=== PATIENT | male | born 1970 | race Hispanic/Latino ===

== ENCOUNTER 2016-11-14 03:25 | Inpatient (IN) | payer OTHER ==
[2016-11-14 05:23] LABS: Basophils % (Auto) 0.3 % (0.0-1.8); Eosinophils % (Auto) 1.6 % (0.0-4.3); Hematocrit 43.9 % (35.5-45.6); Mean Corpuscular HGB Conc 34 % (32-34); Mean Corpuscular Hemoglobin 27 pg (28-32); Mean Corpuscular Volume 80 fl (84-94); Platelet Count 240 K/mm3 (140-440); Red Blood Count 5.52 M/mm3 (3.65-5.03); Red Cell Distribution Width 16.4 % (13.2-15.2); White Blood Count 13.4 K/mm3 (4.5-11.0)
[2016-11-14 05:40] LABS: Anion Gap 21 mmol/L; BUN/Creatinine Ratio 7.27; Blood Urea Nitrogen 8 mg/dL (9-20); Calcium 8.9 mg/dL (8.4-10.2); Carbon Dioxide 19 mmol/L (22-30); Chloride 103.6 mmol/L (98-107); Glucose 72 mg/dL (75-100); Sodium 140 mmol/L (137-145)
--- NOTE | 2016-11-14 09:54 | XRay Report ---
ROUTINE CHEST, TWO VIEWS: HISTORY: Shortness of breath. The trachea, heart, mediastinal contour, lung acosta and bony thorax are unremarkable. Thoracic neurostimulator is unchanged since 02/29/16. The distal tip terminates at approximately T7-8 level. IMPRESSION: Unremarkable chest x-ray.
[2016-11-14] MEDS ORDERED: ZOFRAN IV ONE (14:37)
[2016-11-14] MEDS ORDERED: MORPHINE IV ONE (14:37)
[2016-11-14] MEDS ORDERED: NITRO-BID 2% TP ONE (14:37)
--- NOTE | 2016-11-14 15:06 | Emergency Department Report ---
ED Chest Pain HPI - General Chief Complaint: Chest Pain Stated Complaint: CHEST PAIN Time Seen by Provider: 11/14/16 14:26 Source: patient, EMS, old records reviewed Mode of arrival: Stretcher Limitations: No Limitations - History of Present Illness Initial Comments: 46-year-old male with a past medical history asthma, CHF, COPD, hypertension, CAD with LAD stent placed in 2014, hiatal hernia, and PUD presents to the hospital complaining of chest pain since yesterday. Pain is left-sided chest described as a "truck sitting on his chest:. Pain is constant without aggravating constant somewhat worse with breathing and radiates all the way to the posterior lateral right chest. Positive associated shortness of breath, nausea, vomiting 1, and diaphoresis. Patient arrived via EMS and received aspirin and nitroglycerin in route. Patient has been compliant with his medications including his aspirin 81 mg daily. Previous medical record review. Patient had a cardiac cath here for [place] [id number] showed a patent mid LAD stent and mild nonobstructive irregularities EF of 60%. Patient also had a negative exercise stress test here February 2016. 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 Severity scale (0 -10): 8 - Related Data Home Medications Medication Instructions Recorded Confirmed Last Taken Atenolol [Tenormin] 50 mg PO DAILY 02/29/16 02/29/16 Unknown Previous Rx's Medication Instructions Recorded Last Taken Type AtorvaSTATin [Lipitor] 40 mg PO QHS #30 tablet 11/11/15 Unknown Rx Gabapentin Enacarbil [Horizant] 600 mg PO TID PRN #90 tablet.er 11/11/15 Unknown Rx Pantoprazole [Protonix TAB] 40 mg PO QDAY #30 tablet 11/11/15 Unknown Rx QUEtiapine [SEROquel] 400 mg PO QHS #30 tablet 11/11/15 Unknown Rx Aspirin EC [Aspirin Enteric Coated 81 mg PO QDAY #30 tablet.dr 03/02/16 Unknown Rx TAB] Nicotine [Habitrol] 14 mg TD QDAY #30 patch 03/02/16 Unknown Rx Prasugrel [Effient] 10 mg PO QDAY #30 tablet 03/02/16 Unknown Rx oxyCODONE /ACETAMINOPHEN [Percocet 1 tab PO BID PRN #10 tablet 03/02/16 Unknown Rx 5/325] Allergies Allergy/AdvReac Type Severity Reaction Status Date / Time Penicillins Allergy Anaphylaxis Verified 06/01/15 13:45 Heart Score - HEART Score History: Slightly suspicious EKG: Normal Age: 45-65 Risk factors: > 3 risk factors or hx of atherosclerotic disease Troponin: < normal limit HEART Score: 3 ED Review of Systems ROS: Stated complaint: CHEST PAIN Other details as noted in HPI Comment: All other systems reviewed and negative Other: Constitutional: No fevers chills Eyes: No eye pain visual changes ENT: No ear pain or throat pain Neck: Denies pain Respiratory: Denies cough wheezing Cardiovascular: Denies palpitations, syncope GI: Denies abdominal pain : Chronic intermittent hematuria Musculoskeletal: Denies back pain Skin: Denies rash, lesions, erythema Neurologic: Denies headache, numbness, weakness ED Past Medical Hx - Past Medical History Previous Medical History?: Yes Hx Hypertension: Yes Hx Congestive Heart Failure: Yes Hx Diabetes: No Hx Arthritis: Yes Hx Kidney Stones: Yes Hx Asthma: Yes Hx COPD: Yes Additional medical history: HIATAL HERNIA. ULCERS. CAD - Surgical History Past Surgical History?: Yes Hx Coronary Stent: Yes Additional Surgical History: BACK SURGERY X 2. INGUINAL HERNIA REPAIR. TONSILLECTOMY - Social History Smoking Status: Current Every Day Smoker Substance Use Type: None - Medications Home Medications: Home Medications Medication Instructions Recorded Confirmed Last Taken Type AtorvaSTATin [Lipitor] 40 mg PO QHS #30 tablet 11/11/15 02/29/16 Unknown Rx Gabapentin Enacarbil [Horizant] 600 mg PO TID PRN #90 tablet.er 11/11/15 Unknown Rx Pantoprazole [Protonix TAB] 40 mg PO QDAY #30 tablet 11/11/15 02/29/16 Unknown Rx QUEtiapine [SEROquel] 400 mg PO QHS #30 tablet 11/11/15 02/29/16 Unknown Rx Atenolol [Tenormin] 50 mg PO DAILY 02/29/16 02/29/16 Unknown History Aspirin EC [Aspirin Enteric Coated 81 mg PO QDAY #30 tablet. 03/02/16 Unknown Rx TAB] Nicotine [Habitrol] 14 mg TD QDAY #30 patch 03/02/16 Unknown Rx Prasugrel [Effient] 10 mg PO QDAY #30 tablet 03/02/16 Unknown Rx oxyCODONE /ACETAMINOPHEN [Percocet 1 tab PO BID PRN #10 tablet 03/02/16 Unknown Rx 5/325] ED Physical Exam - General Limitations: No Limitations - Other Other exam information: General: No limitations, patient is alert in no acute distress Head exam: Atraumatic, normocephalic Eyes exam: Normal appearance, pupils equal reactive to light, extraocular movements intact ENT: Moist mucous membrane, normal oropharynx Neck exam: Normal inspection, full range of motion, no meningismus nontender Respiratory exam: Clear to auscultation bilateral, no wheezes, rales, crackles Cardiovascular: Normal rate and rhythm, normal heart sounds. Positive sternal chest tenderness Abdomen: Soft, nondistended, and nontender, with normal bowel sounds, no rebound, or guarding Extremity: Full range of motion normal inspection no deformity, no calf tenderness or edema Back: Normal Inspection, full range of motion, no tenderness Neurologic: Alert, oriented x3, cranial nerves intact, no motor or sensory deficit Psychiatric: normal affect, normal mood Skin: Warm, dry, intact ED Course Vital Signs 11/14/16 11/14/16 11/14/16 04:38 14:28 14:29 Temperature 97.8 F 98.0 F Pulse Rate 81 82 Respiratory 18 14 14 Rate Blood Pressure 187/119 Blood Pressure 150/92 [Left] O2 Sat by Pulse 98 100 100 Oximetry - Reevaluation(s) Reevaluation #1: 11/14/16 15:04 Morphine, nitroglycerin, and Zofran ordered in the ED. - Consultations Consultation #1: 11/14/16 15:[address] Chacko (ming cards) recommends exercise stress test tomorrow DEA score - Dea Score Age > 65: (0) No Aspirin use within the Past 7 Days: (1) Yes 3 or more CAD Risk Factors: (1) Yes 2 or more Angina events in past 24 hrs: (1) Yes Known CAD with more than 50% Stenosis: (1) Yes Elevated Cardiac Markers: (0) No ST Deviation Greater than 0.5mm: (0) No DEA Score: 4 ED Medical Decision Making - Lab Data Result diagrams: 11/14/16 05:07 11/14/16 05:07 Lab Results 11/14/16 11/14/16 11/14/16 Range/Units 05:07 05:07 09:26 WBC 13.4 H (4.5-11.0) K/mm3 RBC 5.52 H (3.65-5.03) M/mm3 Hgb 15.0 (11.8-15.2) gm/dl Hct 43.9 (35.5-45.6) % MCV 80 L (84-94) fl MCH 27 L (28-32) pg MCHC 34 (32-34) % RDW 16.4 H (13.2-15.2) % Plt Count 240 (140-440) K/mm3 Lymph % (Auto) 15.0 (13.4-35.0) % [place] % (Auto) 11.9 H (0.0-7.3) % Eos % (Auto) 1.6 (0.0-4.3) % Baso % (Auto) 0.3 (0.0-1.8) % Lymph # 2.0 (1.2-5.4) K/mm3 [place] # 1.6 H (0.0-0.8) K/mm3 Eos # 0.2 (0.0-0.4) K/mm3 Baso # 0.0 (0.0-0.1) K/mm3 Seg Neutrophils % 71.2 H (40.0-70.0) % Seg Neutrophils # 9.6 H (1.8-7.7) K/mm3 Sodium 140 (137-145) mmol/L Potassium 4.0 (3.6-5.0) mmol/L Chloride 103.6 (98-107) mmol/L Carbon Dioxide 19 L (22-30) mmol/L Anion Gap 21 mmol/L BUN 8 L (9-20) mg/dL Creatinine 1.1 (0.8-1.5) mg/dL Estimated GFR > 60 ml/min BUN/Creatinine Ratio 7.27 % Glucose 72 L (75-100) mg/dL Calcium 8.9 (8.4-10.2) mg/dL Troponin T < 0.010 < 0.010 (0.00-0.029) ng/mL - EKG Data -: EKG Interpreted by Me (sinus rhythm rate 74 left axis deviation) - EKG Data When compared to previous EKG there are: no significant change (03/01/2016) - Radiology Data Radiology results: report reviewed (chest x-ray: Unremarkable) - Medical Decision Making Plan to admit patient to the hospital for cardiac evaluation. Enzymes negative 2 with unremarkable EKG. I suspect that pain might be musculoskeletal however given her cardiac history will be admitted for further evaluation. Case discussed with molder hand. Patient complains of chronic intermittent hematuria with unknown cause. UA ordered and pending at disposition - Differential Diagnosis CA, unstable angina, PE, costochondritis Critical Care Time: No Critical care attestation.: If time is entered above; I have spent that time in minutes in the direct care of this critically ill patient, excluding procedure time. ED Disposition Clinical Impression: Hx of heart artery stent, Chest pain, Vomiting Disposition: OP ADMIT IP TO THIS HOSP Is pt being admited?: Yes Condition: Stable Time of Disposition: 15:10 (Dr Wheat/hosp)
[2016-11-14] MEDS ORDERED: HABITROL TD ONE (16:38)
[2016-11-14] MEDS ORDERED: GABAPENTIN ENACARBIL 600 MG PO PRN (16:38)
--- NOTE | 2016-11-14 16:40 | History and Physical Report ---
History of Present Illness Date of examination: 11/14/16 Chief complaint: chest pain History of present illness: 46-year-old man with past medical history significant for CAD status post stent placement, hypertension, major depression disorder, chronic back pain presented to the emergency department complaining of left-sided chest pain that started 2 days ago. Pain is 9 out of 10, pressure-like, with radiation to the left arm and left jaw, patient is also complaining associated shortness of breath, diaphoresis. Patient denied palpitation, fever, swelling of the leg. REVIEW OF SYSTEMS: GENERAL: no weight change, no fatigue, no fever HEAD: no head ache EYES: no blurry vision, no acute visual loss EARS: no hearing loss, no discharge, no earache NOSE: no stuffiness, no sneezing, no discharge MOUTH, THROAT AND NECK: no bleeding gums, no sore throat, no swollen neck CARDIAC: no palpitations, + dyspnea on exertion, no orthopnea, no PND, no edema , + chest pain RESPIRATORY: + shortness of breath, no wheeze, no cough, no sputum, no hemoptysis, no asthma GI: no decreased appetite, + nausea, + vomiting, no dysphagia, no diarrhea, no constipation, no abdominal pain URINARY: no change in frequency, no urgency, no polyuria, no hematuria, no incontinence MUSCULOSKELETAL: no muscle weakness, no pain, no joint stiffness NEUROLOGIC: no loss of sensation/numbness, no tingling, no tremors, no weakness/ paralysis HEMATOLOGIC: no anemia, no easy bruising SKIN: no rashes ENDOCRINE: no heat/cold intolerance, no polyuria, no polydipsia, no thyroid problems, no diabetes PSYCHIATRIC: no anxiety, +depression, no suicidal ideations Past History Past Medical History: CAD, hypertension, other (major depression disorder, back pain) Past Surgical History: hernia repair, Other (back surgery) Social history: smoking (1/2 PPD), full code. denies: alcohol abuse, prescription drug abuse, IV drug use Family history: no significant family history Medications and Allergies Allergies Allergy/AdvReac Type Severity Reaction Status Date / Time Penicillins Allergy Anaphylaxis Verified 06/01/15 13:45 Home Medications Medication Instructions Recorded Confirmed Last Taken Type Gabapentin Enacarbil [Horizant] 600 mg PO TID PRN #90 tablet.er 11/11/15 Unknown Rx QUEtiapine [SEROquel] 400 mg PO QHS #30 tablet 11/11/15 11/14/16 Unknown Rx Atenolol [Tenormin] 50 mg PO DAILY 02/29/16 11/14/16 Unknown History Aspirin EC [Aspirin Enteric Coated 81 mg PO QDAY #30 tablet. 03/02/16 Unknown Rx TAB] oxyCODONE /ACETAMINOPHEN [Percocet 1 tab PO BID PRN #10 tablet 03/02/16 Unknown Rx 5/325] Zolpidem [Ambien] 10 mg PO QHS 11/14/16 11/14/16 Unknown History Active Meds: Active Medications Aspirin (Baby Aspirin) 81 mg PO QDAY ARSLAN Atorvastatin Calcium (Lipitor) 40 mg PO QHS ARSLAN Heparin Sodium (Porcine) (Heparin) 5,000 unit SUB-Q Q8HR ARSLAN Nicotine (Habitrol) 14 mg TD ONCE ONE Stop: 11/14/16 16:39 Exam - Physical Exam Narrative exam: Not in cardiopulmonary distress. The patient is obese. Vital signs as documented. Head exam is unremarkable. No scleral icterus . Neck is without jugular venous distension, thyromegaly, or carotid bruits. Lungs are clear to auscultation. Cardiac exam reveals regular rate and Rhythm. First and second heart sounds normal. No murmurs, rubs or gallops. Abdominal exam reveals normal bowel sounds, no masses, no organomegaly and no aortic enlargement. Extremities are nonedematous and both femoral and pedal pulses are normal. 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 No focal weakness. - Constitutional Vitals: Temp Pulse Resp BP Pulse Ox 98.0 F 82 14 150/92 100 11/14/16 14:28 11/14/16 14:28 11/14/16 14:29 11/14/16 14:28 11/14/16 14:29 Results - Labs CBC & Chem 7: 11/14/16 05:07 11/14/16 05:07 Labs: Laboratory Last Values WBC 13.4 K/mm3 (4.5-11.0) H 11/14/16 05:07 RBC 5.52 M/mm3 (3.65-5.03) H 11/14/16 05:07 Hgb 15.0 gm/dl (11.8-15.2) 11/14/16 05:07 Hct 43.9 % (35.5-45.6) 11/14/16 05:07 MCV 80 fl (84-94) L 11/14/16 05:07 MCH 27 pg (28-32) L 11/14/16 05:07 MCHC 34 % (32-34) 11/14/16 05:07 RDW 16.4 % (13.2-15.2) H 11/14/16 05:07 Plt Count 240 K/mm3 (140-440) 11/14/16 05:07 Lymph % (Auto) 15.0 % (13.4-35.0) 11/14/16 05:07 [place] % (Auto) 11.9 % (0.0-7.3) H 11/14/16 05:07 Eos % (Auto) 1.6 % (0.0-4.3) 11/14/16 05:07 Baso % (Auto) 0.3 % (0.0-1.8) 11/14/16 05:07 Lymph # 2.0 K/mm3 (1.2-5.4) 11/14/16 05:07 [place] # 1.6 K/mm3 (0.0-0.8) H 11/14/16 05:07 Eos # 0.2 K/mm3 (0.0-0.4) 11/14/16 05:07 Baso # 0.0 K/mm3 (0.0-0.1) 11/14/16 05:07 Seg Neutrophils % 71.2 % (40.0-70.0) H 11/14/16 05:07 Seg Neutrophils # 9.6 K/mm3 (1.8-7.7) H 11/14/16 05:07 Sodium 140 mmol/L (137-145) 11/14/16 05:07 Potassium 4.0 mmol/L (3.6-5.0) 11/14/16 05:07 Chloride 103.6 mmol/L (98-107) 11/14/16 05:07 Carbon Dioxide 19 mmol/L (22-30) L 11/14/16 05:07 Anion Gap 21 mmol/L 11/14/16 05:07 BUN 8 mg/dL (9-20) L 11/14/16 05:07 Creatinine 1.1 mg/dL (0.8-1.5) 11/14/16 05:07 Estimated GFR > 60 ml/min 11/14/16 05:07 BUN/Creatinine Ratio 7.27 % 11/14/16 05:07 Glucose 72 mg/dL (75-100) L 11/14/16 05:07 Calcium 8.9 mg/dL (8.4-10.2) 11/14/16 05:07 Troponin T < 0.010 ng/mL (0.00-0.029) 11/14/16 14:40 Assessment and Plan Assessment and plan: Chest pain CAD status post stent placement Hypertension Chronic back pain Major depression disorder -Positive cardiac enzymes are negative, EKG no change from baseline -Cardiology consulted, per ER doctor cardiology recommended exercise stress test - We will resume appropriate home medications DVT prophylaxis - Lovenox Disposition - Admit to telemetry floor Advance Directives: Yes VTE prophylaxis?: Chemical Plan of care discussed with patient/family: Yes
[2016-11-14 16:57] LABS: INR 1.04 (0.87-1.13)
[2016-11-14 20:37] LABS: Bilirubin,Urine NEG (Negative); Blood,Urine LG (Negative); Ketones,Urine NEG (Negative); Leukocyte Esterase,Urine NEG (Negative); Mucus,Urine FEW /HPF; Nitrite,Urine NEG (Negative); Protein,Urine <15 mg/dL mg/dL (Negative)
[2016-11-14] MEDS ORDERED: NEURONTIN PO PRN (22:00)
[2016-11-14] MEDS ORDERED: NACL ONE (23:07)
[2016-11-14] MEDS: AMBIEN PO SCH (23:10)
[2016-11-14] MEDS: HEPARIN SUB-Q SCH (23:15)
--- NOTE | 2016-11-14 23:54 | Cat Scan Report ---
FINAL REPORT PROCEDURE: CT ANGIO CHEST TECHNIQUE: Computerized axial tomographic angiography of the chest and pulmonary arteries was performed after the IV injection of iodinated nonionic contrast. The image data was postprocessed using maximum intensity projection (MIP) and 2-dimensional multiplanar reformatted (MPR) techniques. The examination is specifically tailored to the evaluation of the pulmonary arteries per clinical request. HISTORY: Short of breath 786.09, chest pain 786.50, CHEST PAIN COMPARISON: 11/11/2015 FINDINGS: Heart and pericardium: Normal. Thoracic aorta: Normal. Pulmonary vasculature: Normal. No pulmonary emboli. Lymph nodes: No enlarged thoracic lymph nodes. Lungs: Normal. Pleural space: No effusion, thickening, or pneumothorax. Musculoskeletal structures: No significant abnormality. Upper abdominal structures: No significant abnormality. IMPRESSION: There is no pulmonary embolism. There is no thoracic aortic aneurysm or dissection.. The lungs are clear.
[2016-11-15] MEDS: PERCOCET 5/325 PO PRN ×2 (00:06→23:10)
[2016-11-15] MEDS: HEPARIN SUB-Q SCH ×3 (06:52→22:57)
[2016-11-15 07:05] LABS: Basophils % (Auto) 0.6 % (0.0-1.8); Eosinophils % (Auto) 3.1 % (0.0-4.3); Hematocrit 40.5 % (35.5-45.6); Hemoglobin 13.4 gm/dl (11.8-15.2); Mean Corpuscular HGB Conc 33 % (32-34); Mean Corpuscular Hemoglobin 27 pg (28-32); Mean Corpuscular Volume 82 fl (84-94); Platelet Count 223 K/mm3 (140-440); Red Blood Count 4.95 M/mm3 (3.65-5.03); Red Cell Distribution Width 16.5 % (13.2-15.2); White Blood Count 9.7 K/mm3 (4.5-11.0)
[2016-11-15 07:15] LABS: BUN/Creatinine Ratio 10.66; Calcium 8.4 mg/dL (8.4-10.2); Chloride 101.8 mmol/L (98-107)
[2016-11-15] MEDS ORDERED: TENORMIN PO SCH (10:00)
--- NOTE | 2016-11-15 11:26 | Admit Criteria Form ---
Admission Criteria Documentation: CHEST PAIN Clinical Indications for Admission to Inpatient Care (Place 'X' for any and all applicable criteria): Admission is indicated for chest pain and ANY ONE of the following(1)(2)(3)(4)(5 ): [ ]I. Angina with acute coronary syndrome (Also use Myocardial Infarction or Angina guideline) [ ]II. Hemodynamic instability [X]III. Angina needing acute intervention as indicated by ALL of the following( 11)(12): [ ]a) Unstable angina is present as indicated by angina that is ANY ONE of the following: [ ]i) New onset [ ]ii) Nocturnal [ ]iii) Prolonged at rest [ ]iv) Progressive [X]b) Angina warrants acute intervention as indicated by ANY ONE of the following: [ ]i) Recurrent angina (e.g, not responding as previously to treatment) [ ]ii) Angina at rest or with low-level activities despite initial medical therapy [ ]iii) New or presumably new ST-segment depression on ECG [ ]iv) Signs or symptoms of heart failure (eg, dyspnea, pulmonary edema) [ ]v) New or worsening mitral regurgitation [ ]vi) Hemodynamic instability [ ]vii) Dangerous arrhythmia (eg, sustained ventricular tachycardia) [ ]viii) History of percutaneous coronary intervention within 6 months [ ]ix) History of coronary artery bypass graft surgery [X]x) DEA risk score of 2 or greater[A] [ ]xi) History of Diabetes(14) [ ]xii) High-risk cardiac ischemia findings on noninvasive testing (e.g, echocardiogram, treadmill testing, nuclear scan) [ ]xiii) Chronic renal insufficiency (ie, estimated GFR less than 60 mL/min/1.732m) [ ]xiv) Left ventricular ejection fraction less than 40% [ ]IV. Evidence of FL (eg, cardiac biomarkers positive, ST-segment elevation on ECG) also use Myocardial Infarction Criteria Form. [ ]V. Pulmonary edema [ ]. Respiratory distress [ ]VII. Chest pain indicative of serious diagnosis other than coronary artery disease (eg, aortic dissection) [ ]VIII. Contraindications and/or Inappropriate clinical situations for Observational Care in patients with Chest Pain, when ANY ONE of the following is required: [ ]a) Patient with risk factor for pulmonary embolism, acute coronary syndrome and myocardial infarction (18) [ ]b) Patient with Pulmonary embolism require an average LOS of 4.3 days, therefore emergency department observation management is inappropriate 18,23 [ ]c) Painful condition/s in the elderly, have the highest rate of recidivism after emergency department observation management (10.8%) 20,21,22 [ ]d) Elevated cardiac biomarker requires intensive and exhaustive care (19) [ ]IX. General contraindications and/or Inappropriate clinical situations for Observational Care in patients with Chest Pain, when ANY ONE of the following is required: [ ]a) Prediction of prolongation of LOS based on ANY ONE of the following may be considered as a contraindication for observational care 2, 3, 4, 5, 6, 7, 8, 9, 10, 11 [ ]i) Age > 65 yrs. [ ]ii) Patient arriving by ambulance [ ]iii) Patient with high acuity [ ]iv) Patient requiring vital sign monitoring [ ]v) Patient on IV medication [ ]b) Systolic blood pressures 180mmHg 3,12 [ ]c) Patient with altered mental status including delirium and other alteration of consciousness, (3) [ ]d) Patient whose discharge disposition will be to a longterm home or rehabilitation home should not be managed in Emergency Department Observation Unit. CMS rule requires 3 days hospital stay before such placement. 3,13 [ ]e) Patient with failure to thrive due to broad array of etiologies 3,16,17 [ ]f) Inability to ambulate 3,14 Extended stay beyond goal length of stay may be needed for (1)(28): [ ]a) Specific condition diagnosed after evaluation (eg, pulmonary embolism, aortic dissection) [ ]b) Unstable angina [ ]c) Continued suspicion of acute coronary syndrome with inability to complete needed cardiac evaluation (eg, patient clinically unable to undergo stress testing) [ ]d) Myocardial infarction (Contents from ANGINA and CHEST PAIN clinical indications for admission to inpatient care have been integrated in this form) The original [employer] content created by [employer] has been revised. The portions of the content which have been revised are identified through the use of italic text or in bold, and [facility] [employer] has neither reviewed nor approved the modified material. All other unmodified content is copyright [employer]. Please see references footnoted in the original [employer] edition 2016 Admission Criteria Met: Yes
[2016-11-15] MEDS ORDERED: LEXISCAN IV ONE ×2 (11:49→11:52)
--- NOTE | 2016-11-15 12:37 | Progress Note ---
Subjective Date of service: 11/15/16 Interval history: Assessment and plan: Chest pain: 3 sets of troponin were negative for CO. Cardiology consult was requested. Scheduled for stress test Patient continues to c/o left-sided chest pressure. He states the chest pain and pressure radiating to the left jaw has improved with nitroglycerin paste but presently feels pressure discomfort in the left chest. Await cardiology follow-up and stress test results Hypotension: Patient's blood pressure is 80-90 systolic, most likely secondary to Nitropaste. I would start him on intravenous fluids normal saline and will hold beta adair for now and monitor blood pressure closely CAD: Status post PCI in 2014. Continue statin. We'll hold beta adair for to day due to borderline hypotension History of depression: Continue home medication Chronic lower back pain: Restart the patient on pain medication with [place] as needed Subjective: Patient is awake and alert No apparent distress Complains of left chest pressure Denies any shortness of breath Denies cough or dizziness or loss of consciousness Denies nausea vomitings abdominal pain Objective - Constitutional Vitals: Vital Signs - 12hr 11/15/16 11/15/16 11/15/16 03:43 06:00 08:00 Temperature 97.4 F L 97.6 F Pulse Rate 90 78 76 Pulse Rate [ Apical] Respiratory 20 18 Rate Blood Pressure 90/58 80/51 O2 Sat by Pulse 97 100 Oximetry 11/15/16 11/15/16 09:45 10:00 Temperature Pulse Rate Pulse Rate [ 76 Apical] Respiratory 20 Rate Blood Pressure O2 Sat by Pulse 98 98 Oximetry General appearance: Present: no acute distress - EENT Eyes: PERRL, EOM intact ENT: hearing intact, clear oral mucosa, no thrush - Neck Neck: supple, normal ROM, no masses or JVD - Respiratory Respiratory effort: normal Respiratory: bilateral: CTA - Cardiovascular Rhythm: regular Heart Sounds: Present: S1 & S2 Extremities: No edema - Gastrointestinal General gastrointestinal: Present: soft, non-tender. Absent: hepatomegaly, splenomegaly Rectal Exam: deferred - Integumentary Integumentary: clear - Musculoskeletal Musculoskeletal: strength equal bilaterally - Neurologic Neurologic: no focal deficits - Psychiatric Psychiatric: appropriate mood/affect - Labs CBC & Chem 7: 11/15/16 05:51 11/15/16 05:51 Labs: Abnormal lab results 11/15/16 11/15/16 Range/Units 05:51 05:51 MCV 82 L (84-94) fl MCH 27 L (28-32) pg RDW 16.5 H (13.2-15.2) % [place] % (Auto) 11.8 H (0.0-7.3) % [place] # 1.1 H (0.0-0.8) K/mm3 Carbon Dioxide 19 L (22-30) mmol/L HDL Cholesterol 33 L (40-59) mg/dL
--- NOTE | 2016-11-15 13:46 | Consultation ---
History of Present Illness Consult date: 11/15/16 Consult reason: chest pain History of present illness: Patient is a 46-year-old man with an extensive cardiac history. He has coronary artery disease, that is post 100 stents placement to the LAD several years ago. Early last year, he underwent a cardiac catheterization that revealed the LAD stent to be widely patent, no significant other residual disease. His left ventricular ejection fraction was 60%. At the end of the same year, February 2016, he presented again with chest pain underwent a Persantine thallium stress test which was normal, and left ventricle systolic function on echocardiogram was 55%. The patient presents to the hospital again with chest pain, poorly characterized , nonexertional and no associated symptoms. An ECG was normal sinus rhythm, no acute ischemic changes. Cardiac enzymes were negative. Today, we performed an exercise ECG test. The patient exercised for 6 minutes of a Mihir protocol, completing stage II and achieving 7 mets. Peak heart rate was 134. Was no chest pain on exercise, and no ST changes of ischemia. The exercise ECG test was negative. Past History Past Medical History: CAD, hypertension, other (major depression disorder, back pain) Past Surgical History: hernia repair, Other (back surgery) Social history: smoking (1/2 PPD), full code. denies: alcohol abuse, prescription drug abuse, IV drug use Family history: no significant family history Medications and Allergies Allergies Allergy/AdvReac Type Severity Reaction Status Date / Time Penicillins Allergy Anaphylaxis Verified 06/01/15 13:45 Home Medications Medication Instructions Recorded Confirmed Last Taken Type Gabapentin Enacarbil [Horizant] 600 mg PO TID PRN #90 tablet.er 11/11/15 Unknown Rx QUEtiapine [SEROquel] 400 mg PO QHS #30 tablet 11/11/15 11/14/16 Unknown Rx Atenolol [Tenormin] 50 mg PO DAILY 02/29/16 11/14/16 Unknown History Aspirin EC [Aspirin Enteric Coated 81 mg PO QDAY #30 tablet. 03/02/16 Unknown Rx TAB] oxyCODONE /ACETAMINOPHEN [Percocet 1 tab PO BID PRN #10 tablet 03/02/16 Unknown Rx 5/325] Zolpidem [Ambien] 10 mg PO QHS 11/14/16 11/14/16 Unknown History Active Meds: Active Medications Aspirin (Baby Aspirin) 81 mg PO QDAY [facility] Atorvastatin Calcium (Lipitor) 40 mg PO QHS [facility] Last Admin: 11/14/16 23:05 Dose: 40 mg Gabapentin (Neurontin) 600 mg PO TID PRN PRN Reason: Pain Heparin Sodium (Porcine) (Heparin) 5,000 unit SUB-Q Q8HR [facility] Last Admin: 11/15/16 06:52 Dose: 5,000 unit Sodium Chloride (Nacl 0.9% 1000 Ml) 1,000 mls @ 125 mls/hr IV DIRECT [facility] Oxycodone/Acetaminophen (Percocet 5/325) 1 tab PO BID PRN PRN Reason: Pain Last Admin: 11/15/16 00:06 Dose: 1 tab Quetiapine Fumarate (Seroquel) 400 mg PO QHS [facility] Last Admin: 11/14/16 23:05 Dose: 400 mg Zolpidem Tartrate (Ambien) 10 mg PO QHS [facility] Last Admin: 11/14/16 23:10 Dose: 10 mg Review of Systems Cardiovascular: chest pain, shortness of breath, no orthopnea, no palpitations, no rapid/irregular heart beat, no edema, no syncope, no lightheadedness Physical Examination Vital Signs Temp Pulse Resp BP Pulse Ox 97.8 F 81 18 187/119 98 11/14/16 04:38 11/14/16 04:38 11/14/16 04:38 11/14/16 04:38 11/14/16 04:38 General appearance: no acute distress HEENT: Positive: PERRL Neck: Positive: neck supple Cardiac: Positive: Reg Rate and Rhythm Lungs: Positive: Decreased Breath Sounds Neuro: Positive: Grossly Intact Abdomen: Positive: Soft Male genitourinary: Positive: deferred Skin: Positive: Clear Extremities: Absent: edema Results 11/15/16 05:51 11/15/16 05:51 Coagulation 11/14/16 Range/Units 16:34 PT 13.5 (12.2-14.9) Sec. INR 1.04 (0.87-1.13) Lipids 11/15/16 Range/Units 05:51 Triglycerides 109 (2-149) mg/dL Cholesterol 164 (50-199) mg/dL HDL Cholesterol 33 L (40-59) mg/dL Cholesterol/HDL Ratio 4.96 % CBC 11/15/16 Range/Units 05:51 WBC 9.7 (4.5-11.0) K/mm3 RBC 4.95 (3.65-5.03) M/mm3 Hgb 13.4 (11.8-15.2) gm/dl Hct 40.5 (35.5-45.6) % Plt Count 223 (140-440) K/mm3 Lymph # 2.6 (1.2-5.4) K/mm3 [place] # 1.1 H (0.0-0.8) K/mm3 Eos # 0.3 (0.0-0.4) K/mm3 Baso # 0.1 (0.0-0.1) K/mm3 Comprehensive Metabolic Panel 11/15/16 Range/Units 05:51 Sodium 138 (137-145) mmol/L Potassium 4.0 (3.6-5.0) mmol/L Chloride 101.8 (98-107) mmol/L Carbon Dioxide 19 L (22-30) mmol/L BUN 16 (9-20) mg/dL Creatinine 1.5 (0.8-1.5) mg/dL Glucose 87 (75-100) mg/dL Calcium 8.4 (8.4-10.2) mg/dL EKG interpretations - Telemetry EKG Rhythm: Sinus Rhythm Assessment and Plan - Patient Problems (1) Chest pain Current Visit: Yes Status: Acute Qualifiers: Chest pain type: C Ischemic chest pain type: I Plan to address problem: Today, we performed an exercise ECG test. The patient exercised for 6 minutes of a Mihir protocol, completing stage II and achieving 7 mets. Peak heart rate was 134. Was no chest pain on exercise, and no ST changes of ischemia. The exercise ECG test was negative. Patient is recommended for continued medical therapy including beta blockers, statin therapy, oral antiplatelet therapy and aggressive risk factor modification including smoking cessation. If there is further atypical chest pain, will recommend his primary care medical service to evaluate him for noncardiac chest pain.
[2016-11-15] MEDS: NACL 0.9% 1000 ML 1,000 ML IV SCH (14:04)
[2016-11-15] MEDS ORDERED: BABY ASPIRIN PO SCH (16:35)
[2016-11-15] MEDS: AMBIEN PO SCH (22:58)
[2016-11-16 06:42] LABS: Anion Gap 20 mmol/L; BUN/Creatinine Ratio 16.36; Blood Urea Nitrogen 18 mg/dL (9-20); Calcium 8.1 mg/dL (8.4-10.2); Carbon Dioxide 16 mmol/L (22-30); Chloride 107.1 mmol/L (98-107); Glucose 82 mg/dL (75-100); Potassium 4.1 mmol/L (3.6-5.0); Sodium 139 mmol/L (137-145)
[2016-11-16] MEDS: HEPARIN SUB-Q SCH (06:50)
--- NOTE | 2016-11-16 07:23 | Treadmill Report ---
REASON FOR TEST: Chest pain. The patient exercised for 6 minutes of Mihir protocol, completing stage 2 and achieving 7 mets. Peak heart rate was 133 beats per minute. Peak blood pressure was 140/90. There was no chest pain. Test was stopped for fatigue. Baseline ECG was normal sinus rhythm. With exercise, there were no ST changes of ischemia. Occasional isolated PVCs were noted during exercise. CONCLUSION: 1. Average exercise capacity. 2. No chest pain with exercise. 3. No ST changes of ischemia. 4. Occasional premature ventricular contractions with exercise. This is a negative exercise ECG test. JOB# [id number] CA/NTS
[2016-11-16] MEDS: NACL 0.9% 1000 ML 1,000 ML IV SCH (11:30)
[2016-11-16] MEDS: PERCOCET 5/325 PO PRN (11:33)
--- NOTE | 2016-11-16 11:47 | Progress Note ---
Assessment and Plan Chest pain, atypical exercise ECG test done this admission: The patient exercised for 6 minutes of a Mihir protocol, completing stage II and achieving 7 mets. Peak heart rate was 134. There was no chest pain on exercise, and no ST changes of ischemia. The exercise ECG test was negative. Hx of CAD [facility] 05/2015: patent LAD stent, no other significant residual disease, EF 60%. MPI 02/2016: negative for ischemia Echo 02/2016: EF 55% on echocardiogram Hypertension Recommendation: No further cardiac workup indicated. Medical therapy for his coronary artery disease and aggressive risk factor modification including smoking cessation. Subjective Date of service: 11/16/16 Interval history: Patient complains of headaches and light headedness. Objective Vital Signs Temp Pulse Pulse Resp BP Pulse Ox 11/16/16 10:00 82 20 96 11/16/16 08:25 97.8 F 82 20 128/79 96 11/16/16 08:06 66 11/16/16 06:00 74 11/16/16 05:46 97.5 F L 74 23 114/56 97 11/16/16 00:59 98.4 F 72 19 112/57 99 11/15/16 23:04 72 18 112/57 11/15/16 22:00 86 98 11/15/16 19:47 98 F 115 H 21 184/133 95 11/15/16 16:00 97.7 F 83 18 129/66 100 11/15/16 12:00 97.4 F L 78 18 112/72 97 - Physical Examination General: No Apparent Distress HEENT: Positive: PERRL Neck: Positive: trachea midline Cardiac: Positive: Reg Rate and Rhythm Neuro: Positive: Grossly Intact Abdomen: Positive: Soft Skin: Positive: Clear Extremities: Absent: edema - Labs and Meds Comprehensive Metabolic Panel 11/16/16 Range/Units 05:50 Sodium 139 (137-145) mmol/L Potassium 4.1 (3.6-5.0) mmol/L Chloride 107.1 H (98-107) mmol/L Carbon Dioxide 16 L (22-30) mmol/L BUN 18 (9-20) mg/dL Creatinine 1.1 (0.8-1.5) mg/dL Glucose 82 (75-100) mg/dL Calcium 8.1 L (8.4-10.2) mg/dL
--- NOTE | 2016-11-16 11:50 | Discharge Summary ---
Providers - Providers Date of Admission: 11/14/16 16:33 Attending physician: JARETH BHATIA MD 11/14/16 Consult to Cardiac Rehabilitation [CONS] Routine Reason For Exam: Phase 1 11/14/16 16:34 Consult to Cardiology [CONS] Routine Consulting Provider: [facility] Flori DUGAN Reason For Exam: chest pain Primary care physician: [employer] Hospitalization Reason for admission: chest pain Condition: Stable Hospital course: 46-year-old man with past medical history significant for CAD status post stent placement, hypertension, major depression disorder, chronic back pain presented to the emergency department complaining of left-sided chest pain that started 2 days ago. Pain is 9 out of 10, pressure-like, with radiation to the left arm and left jaw, patient is also complaining associated shortness of breath, diaphoresis. On admission patient was risk stratified and subsequently sent for stress test which was reviewed and negative. Patient currently stable for discharge. Patient is to follow with cardiology and also with primary care physician. Upon discharge patient was requesting for pain medication I did advice him to follow with his primary care doctor for this. On reevaluation of his pain he described as 3/10 in intensity and is a chronic pain for him. He reports that he has not since primary care physician in months. His compliance is questioned. He does still have some narcotic home which I told him to continue on to his his primary care doctor. Regulatory Intern did evaluate him prior to discharge. He denied any suicidal or homicidal ideation. Smoking cessation was discussed in detail with the patient to verbalize understanding. Also had a time of discharge the patient reports intermittent hematuria that was noted on urinalysis. I recommended a urology evaluation outpatient but discussed this with the patient I give him the name of our urologist Dr Knott. of the patient verbalized understanding. Discharge diagnosis Atypical chest pain likely secondary to costochondritis Chronic Opioid dependence syndrome CAD Hypertension Depression Chronic low back pain Tobacco dependence. Disposition: TO HOME OR SELFCARE Time spent for discharge: 35 mins Core Measure Documentation - Palliative Care Palliative Care/ Comfort Measures: Not Applicable - Core Measures Any of the following diagnoses?: none - VTE Discharge Requirements Deep Vein Thrombosis/Pulmonary Embolism Present on Admission: No Exam - Physical Exam Narrative exam: VITAL SIGNS: Reviewed. GENERAL: The patient appeared well nourished and normally developed. Vital signs as documented. HEAD: No signs of head trauma. EYES: Pupils are equal. Extraocular motions intact. EARS: Hearing grossly intact. MOUTH: Oropharynx is normal. NECK: No adenopathy, no JVD. CHEST: Chest with clear breath sounds bilaterally. No wheezes, rales, or rhonchi. CARDIAC: Regular rate and rhythm. S1 and S2, without murmurs, gallops, or rubs. VASCULAR: No Edema. Peripheral pulses normal and equal in all extremities. ABDOMEN: Soft, without detectable tenderness. No sign of distention. No rebound or guarding, and no masses palpated. Bowel Sounds normal. MUSCULOSKELETAL: Good range of motion of all major joints. Extremities without clubbing, cyanosis or edema. NEUROLOGIC EXAM: Alert and oriented x 3. No focal sensory or strength deficits. Speech normal. Follows commands. PSYCHIATRIC: Mood normal. SKIN: No rash or lesions. - Constitutional Vitals: Temp Pulse Resp BP Pulse Ox 97.8 F 82 20 128/79 96 11/16/16 08:25 11/16/16 10:00 11/16/16 10:00 11/16/16 08:25 11/16/16 10:00 Plan Activity: advance as tolerated, fall precautions Diet: low fat Special Instructions: record daily weights, record daily BP diary Additional Instructions: follow with GI outpatient for further evaluation Follow up with: OSIRIS MORROW MD [Staff Physician] - 7 Days IVAN COVARRUBIAS MD [Staff Physician] - 7 Days PRIMARY CAREMD [Primary Care Provider] - 7 Days
[2016-11-16 14:39] VITALS: BP 126/58
== END 2016-11-16 12:24 | disposition home or self-care (01) | DRG 206 ==
LOC: ED 03:25 → 4A 16:33
PROVIDERS: ADMIT Internal Medicine; ATTEND Internal Medicine
DX: M94.0 Chondrocostal junction syndrome [Tietze] (principal); F11.20 Opioid dependence, uncomplicated; Z95.5 Presence of coronary angioplasty implant and graft; I25.10 Atherosclerotic heart disease of native coronary artery without angina pectoris; F32.9 Major depressive disorder, single episode, unspecified; G89.29 Other chronic pain; F17.210 Nicotine dependence, cigarettes, uncomplicated; Z88.0 Allergy status to penicillin; I50.9 Heart failure, unspecified; I11.0 Hypertensive heart disease with heart failure; J44.9 Chronic obstructive pulmonary disease, unspecified; M19.90 Unspecified osteoarthritis, unspecified site; Z87.442 Personal history of urinary calculi; Z90.89 Acquired absence of other organs
CPT/HCPCS: 36415; 71020; 71275; 80048; 80061; 81001; 84484; 85025; 85379; 85610; 93005; 93010; 93017; 96374; 96375; A9270-GY; J1644; J2270; J2405; J2785; J7030; Q9967